=== PATIENT | female | born 1955 | race Caucasian/White ===

== ENCOUNTER → 2019-06-09 | Outpatient (CLI) | payer BC ==
--- NOTE | 2019-06-16 12:36 | RAD ---
History: Routine screening. Technique: Bilateral digital mammographic routine views were obtained with 2-D and 3-D technique including use of CAD - computer aided detection. Comparison: 08/11/2009, 05/14/2005. Findings: Breast Tissue Density C : The breast tissue is heterogeneously dense. Scattered fibroglandular elements may obscure underlying pathology. Waxing and waning pattern of nodularity in both breasts, compatible with benign fibrocystic change. There are no suspicious masses, microcalcifications or areas of architectural distortion. Impression: Benign findings bilaterally. No evidence of malignancy. BI-RADS Category 2: Benign. Normal interval followup. Your mammogram demonstrates that you have dense breast tissue, which could hide abnormalities, and if you have other risk factors for breast cancer that have been identified, you might benefit from supplemental screening tests that may be suggested by your ordering physician. Dense breast tissue, in and of itself, is a relatively common condition. This information is not provided to cause undue concern, but rather to raise your awareness and to promote discussion with your physician regarding the presence of other risk factors, in addition to dense breast tissue. A report of your mammography results will be sent to you and your physician. You should contact your physician if you have any questions or concerns regarding this report. A mammogram does not have 100% sensitivity and therefore a negative imaging study should not delay further work up of a suspicious abnormality. The patient will receive a letter with the results in the mail. Patient information is entered into the reminder system with a target due date for the next screening mammogram. The patient will receive a reminder. "Our facility is accredited by the [employer] Mammography Program." BI-RADS 2 -- benign findings
== END | disposition home or self-care (01) ==
LOC: MAMMO 14:22
PROVIDERS: ATTEND Internal Medicine
DX: Z12.31 Encounter for screening mammogram for malignant neoplasm of breast (principal); N64.89 Other specified disorders of breast
CPT/HCPCS: 77063; 77067

== ENCOUNTER 2020-05-11 09:59 | Inpatient (IN) | payer BC ==
[~2020-05-11] VITALS: Ht 170.2 cm; Wt 66.3 kg
[2020-05-11] MEDS ORDERED: IV NORMAL SALINE 1,000ML 1,000 ML IV ONE (10:15)
[2020-05-11] MEDS ORDERED: ONDANSETRON PF 4 MG/2 ML VIAL. IV ONE (10:15)
--- NOTE | 2020-05-11 10:41 | PHYS DOC ---
Past History Past Medical History: No Pertinent History Past Surgical History: No Surgical History Alcohol Use: None General Adult EDM: Chief Complaint: DIZZY/LIGHT HEADED HPI: HPI: 64 yo F presenting with dizziness for 24 hours. she describes that the room is spinning. when she moves her dizziness is worse. It is improved with sitting still. She fell yesterday and hit her head but did not lose consciousness. when she fell she injured her left thumb. She denies any other injuries from the fall. She denies vomiting. She denies abdominal pain. She denies fevers or chills. duration constant. nonradiating. ROS: neg for cp, soa, headache, focal weakness, speech changes. Pos for dizziness and head injury. All other ros is neg. ed course: 64 yo F presenting with dizziness and recent head injury. LKW 1200 noon on 05/10/2020. On arrival IV initiated. Head CT ordered along with blood work. Head and neck CT unremarkable. Patient is outside of the window for TPA. Finger x-ray shows acute comminuted distal phalanx fracture with intra- articular extension. Patient was placed in a splint and will be referred to orthopedic surgery for evaluation within the next 3-5 days. Blood work shows a mild elevation in bilirubin AST and ALT. Troponin within normal limits. On reexamination after fluids and meclizine the patient continues to feel vertigo. We will admit the patient for further investigation. Patient will need repeat liver function tests tomorrow. I will add on a CT angiogram of the head and neck. CT angiogram of the head and neck shows no large vessel occlusion. I spoke to Dr. Wilson who accepts patient for admission. Patient was then admitted for further evaluation treatment and care. Urine analysis pending at this time. Dr. Wilson will follow up on urine analysis. Current Medications: Current Meds: Current Medications Medications (Trade) Dose Ordered Sig/Ja Start Time Stop Time Status Last Admin Dose Admin Ondansetron HCl (Zofran) 4 mg 1X ONCE 05/11/20 10:15 05/11/20 10:18 DC 05/11/20 10:27 4 MG Sodium Chloride 1,000 ml @ 1,000 mls/hr 1X ONCE 05/11/20 10:15 05/11/20 11:14 05/11/20 10:27 1,000 MLS/HR Allergies: Allergies: Allergies Coded Allergies Type Severity Reaction Last Updated Verified No Known Drug Allergies 05/06/20 No Physical Exam: PE: Constitutional: Well developed, well nourished, no acute distress, non-toxic appearance. [] HENT: Normocephalic, mild bruise under the right eye. Nontender sinuses., bilateral external ears normal, oropharynx moist, no oral exudates, nose normal. [] Eyes: PERRLA, EOMI, conjunctiva normal, no discharge. [] Neck: Normal range of motion, no tenderness, supple, no stridor. [] Cardiovascular:Heart rate regular rhythm, no murmur [] Lungs & Thorax: Bilateral breath sounds clear to auscultation [] Abdomen: Bowel sounds normal, soft, no tenderness, no masses, no pulsatile masses. [] Skin: Warm, dry, no erythema, no rash. [] Back: No tenderness, no CVA tenderness. [] Extremities: No tenderness, no cyanosis, no clubbing, ROM intact, no edema. [] Neurologic: Mental status: Awake oriented and alert x3 Cranial nerves: Extraocular movements intact, eyebrows chris bilaterally, smile symmetric, uvula elevation nl, shoulder shrug intact bilaterally, tongue protrusion normal Clear speech. Normal [id number]-vl-haio. Lateral nystagmus with both left and right lateral gaze. No horizontal nystagmus. Sensation: equal and normal in all extremities Strength: 5/5 in upper and lower extremities bilaterally Psychologic: Affect normal, judgement normal, mood normal. [] EKG: EKG: [] EKG shows sinus rhythm with a regular rate. QTC is mildly prolonged. ST segments show mild lateral less than [address] elevation. Does not meet STEMI criteria. Radiology/Procedures: Radiology/Procedures: [] Heart Score: Risk Factors: Risk Factors: DM, Current or recent (<one month) smoker, HTN, HLP, family history of CAD, obesity. Risk Scores: Score 0 - 3: 2.5% MACE over next 6 weeks - Discharge Home Score 4 - 6: 20.3% MACE over next 6 weeks - Admit for Clinical Observation Score 7 - 10: 72.7% MACE over next 6 weeks - Early Invasive Strategies Course & Med Decision Making: Course & Med Decision Making Pertinent Labs and Imaging studies reviewed. (See chart for details) [] Dragon Disclaimer: Dragon Disclaimer: This electronic medical record was generated, in whole or in part, using a voice recognition dictation system. Departure Departure: Impression: Primary Impression: Vertigo Disposition: ADMITTED INPT THIS HOSP Admitting Physician: Kelly Wilson Condition: STABLE Referrals: PCP,UNKNOWN (PCP) MEME HERRERA MD May 11, 2020 10:41
[2020-05-11 10:43] LABS: CALCIUM 8.6 mg/dL (8.5-10.1); CREATININE 0.8 mg/dL (0.6-1.0); GFR 72.2; POTASSIUM 3.6 mmol/L (3.5-5.1)
[2020-05-11 10:46] LABS: BASO % 0 % (0-3); EOS % 0 % (0-3); HEMATOCRIT 40.1 % (36.0-47.0); HEMOGLOBIN 13.5 g/dL (12.0-15.5); LYMPH # 1.2 x10^3/uL (1.0-4.8); LYMPH % 12 % (24-48); MEAN CORPUSCULAR HEMOGLOBIN 31 pg (25-35); MEAN CORPUSCULAR HGB CONC 34 g/dL (31-37); MEAN CORPUSCULAR VOLUME 92 fL (79-100); MONO # 1.6 x10^3/uL (0.0-1.1); MONO % 16 % (0-9); NEUT # 7.3 x10^3uL (1.8-7.7); NEUT % 72 % (31-73); PLATELET COUNT 273 x10^3/uL (140-400); RED BLOOD COUNT 4.35 x10^6/uL (3.50-5.40); RED CELL DISTRIBUTION WIDTH 12.9 % (11.5-14.5); WHITE BLOOD COUNT 10.2 x10^3/uL (4.0-11.0)
[2020-05-11 10:49] LABS: ALBUMIN 3.1 g/dL (3.4-5.0); ALBUMIN/GLOBULIN RATIO 0.8 (1.0-1.7); TOTAL BILIRUBIN 1.6 mg/dL (0.2-1.0)
--- NOTE | 2020-05-11 11:20 | RAD ---
XR FINGER(S)_LEFT 2+VIEWS_RT DATE: 05/11/2020 11:10 AM INDICATION: left thumb injury COMPARISON: None. FINDINGS/ IMPRESSION: Acute comminuted fracture of the base of the first distal phalanx with intra-articular extension. Mil d displacement of the dorsal plate, with other nondisplaced components. Electronically signed by: Ed Grimaldo MD (05/11/2020 11:18 AM) [id number]
[2020-05-11] MEDS ORDERED: MECLIZINE 12.5 MG TABLET. PO ONE (12:30)
--- NOTE | 2020-05-11 12:53 | RAD ---
Examination: CT head and cervical spine without contrast CT HEAD INDICATION: Reason: head trauma / Spl. Instructions: / History: COMPARISON: None Available. Exposure: One or more of the following individualized dose reduction techniques were utilized for thi s examination: 1. Automated exposure control 2. Adjustment of the mA and/or kV according to patient size 3. Use of iterative reconstruction technique TECHNIQUE: 5 mm contiguous axial images were obtained from the skull base to the vertex in both bone and soft tissue algorithm. FINDINGS: No abnormal attenuation within the brain parenchyma. No evidence of acute intracranial hemorrhage. No extra-axial fluid collections. No mass effect or midline shift. Ventricular size is appropriate. Basal cisterns are patent. No fractures identified.Nova-white differentiation is preserved.Globes and orbits are within normal l imits. Paranasal sinuses and mastoid air cells are clear. IMPRESSION: No acute intracranial findings. CT CERVICAL SPINE INDICATION: Reason: head trauma / Spl. Instructions: / History: COMPARISON: None Available. Technique: 2.5 mm contiguous axial images were obtained from the skull base through the cervicothorac ic junction in both bone and soft tissue algorithm. Additional sagittal and coronal reconstructions were also performed. FINDINGS: Vertebral body height and alignment are maintained. Cervical lordosis is preserved. The l ateral masses of C1 are aligned upon C2. No fractures identified. The bony canal is patent throughout. Moderate intervertebral disc height loss identified in the cervical spine particularly at C4-C5, C5-C 6, C6-C7 vertebral levels. The bilateral facets are well aligned. The paraspinous soft tissues are unremarkable. Visualized intracranial contents are unremarkable. L phyllis apices are clear. IMPRESSION: 1. No acute fracture of the cervical spine 2. Moderate degenerative changes cervical spine. Electronically signed by: Guy Levine MD (05/11/2020 12:51 PM) [id number]
[2020-05-11] MEDS ORDERED: METOCLOPRAMIDE HCL 10 MG/2 ML VIAL. IVP ONE (13:00)
[2020-05-11] MEDS ORDERED: IOHEXOL 350 MG/ML 100 ML VIAL. IV ONE (15:15)
--- NOTE | 2020-05-11 15:19 | EKG ---
[address] [address] Test Date: 2020-05-11 Test Time: 15:05:02 Pat Name: BENJI FRANCISCO Department: Room: Gender: F Theology Professor: MARLENE : 1955 Requested By: MEME HERRERA Order Number: [id number] Reading MD: Measurements Intervals Valier Rate: 65 P: 36 HI: 144 QRS: -22 QRSD: 84 T: 47 QT: 454 QTc: 473 Interpretive Statements SINUS RHYTHM LEFTWARD AXIS PROLONGED QT NO SPECIFIC ECG ABNORMALITIES RI6.02 No previous ECG available for comparison
[2020-05-11 15:35] VITALS: BP 151/76
--- NOTE | 2020-05-11 16:17 | RAD ---
CTA head and CTA neck with contrast History: Vertigo Technique: Axial helical images were obtained of the head and neck after the intravenous administrati on of 75 mL of Isovue-370 IV contrast. Multiplanar reconstruction was performed on an independent wo rk station including MIP imaging and 3D angiographic imaging. Comparison: none CTA head with and without contrast. Findings: Brain: The reis and white matter appears symmetrical. There is no mass effect, extra-axial fluid co llections or hydrocephalus. There is no gross bleed. 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 No acute findings. End impression PQRS Compliance Statement - Stenosis calculations for CT, MR and conventional angiography are based u soy measurement of the distal ICA diameter in accordance with the NASCET methodology. Stenosis calcu lations for carotid ultrasound studies are derived from validated velocity criteria which are known t o correlate with the NASCET methodology. PQRS Compliance Statement: One or more of the following individualized dose reduction techniques were utilized for this examinat ion: 1. Automated exposure control 2. Adjustment of the mA and/or kV according to patient size 3. Use of iterative reconstruction technique Electronically signed by: Isiah Stevens III, MD (05/11/2020 4:15 PM) [facility]
[2020-05-11] MEDS ORDERED: DEXAMETHASONE (16:36)
[2020-05-11] MEDS ORDERED: [UNRECOGNIZED DRUG - OTHER] (16:36)
[2020-05-11] MEDS: IV NORMAL SALINE 1,000ML 1,000 ML IV SCH (18:15)
[2020-05-11] MEDS ORDERED: ONDANSETRON PF 4 MG/2 ML VIAL. IVP PRN (18:15)
--- NOTE | 2020-05-11 18:32 | HP ---
ADMIT DATE: 05/11/2020 HISTORY OF PRESENT ILLNESS: The patient is a 64-year-old female patient who was discharged on Friday05/07/2020 after a brief admission for pneumonia for which she was discharged on dexamethasone. The patient did very well on Friday and Friday and yesterday she started having episodes of things spinning around, associated with nausea, aggravated by any movement. The symptoms were resolved when she sits still. She has actually fallen and hit her head. He did have some nausea yesterday and she has vomited once this morning, but denied any blurring of vision. Denied any headache, denied any tingling or numbness or lateralized weakness. She was extensively investigated in the Emergency Room and she apparently when she fell, she broke the base of the first distal phalanx with intraarticular extension with mild displacement of the dorsal plate with other nondisplaced component that was splinted by the ER physician. She did have CT head with cervical spine without contrast, which showed no acute intracranial finding and there is no acute fracture of the cervical spine with moderate degenerative changes of cervical spine. She underwent also CT angio of the head and neck, which basically showed both right and left common carotid arteries are normal. The right and left internal carotid artery are normal. The vertebrobasilar system, the left vertebral artery is small which could be a congenital variant. No acute finding. The patient was admitted for further evaluation and treatment and to consult Dr. Hess. PAST MEDICAL HISTORY: Unremarkable. PAST SURGICAL HISTORY: Significant for bunionectomy. ALLERGIES: She has no known drug allergies. MEDICATIONS: She is currently only occasionally on [id number] medication for Tylenol, and ibuprofen. FAMILY HISTORY: She has one brother, older and one sister, younger, both healthy. Her father in his 80s with prostate cancer. Mother in her 70s because of breast cancer. SOCIAL HISTORY: She lives with her . She has a son and a daughter. She never smoked, does not drink alcohol or use any recreational drugs. 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 REVIEW OF SYSTEMS: The patient denied any blurring of vision, cataract, glaucoma. She stated that she has the beginning of senile macular degeneration. Denied any earache, tinnitus or sensorineural deafness. Denied any nosebleeds, stuffy nose or postnasal drip. Denied any sore throat, sore tongue, toothache, hoarseness of voice or difficulty swallowing. Did complain of nausea and vomiting, but denied any diarrhea. Denied any hematemesis, melena, or hematochezia. Denied any dysuria, frequency or hematuria. Denied any chest pain, shortness of breath, orthopnea or paroxysmal nocturnal dyspnea, continued to complain of things spinning around. PHYSICAL EXAMINATION: GENERAL: On arrival to the Emergency Room, she looked well and was clearly in no apparent respiratory distress. No pallor, jaundice, cyanosis or thyromegaly. No jugular venous distention. No limb edema. VITAL SIGNS: Her heart rate was 60, blood pressure was 136/73, temperature was 98, respiratory rate was 16, and oxygen saturation was 90% on room air. HEAD, EYES, EARS, NOSE AND THROAT: Normocephalic, atraumatic. NECK: Supple. HEART: Showed normal first and second heart sounds. No gallop, rub or murmur. CHEST: Clear to auscultation. No crepitation or rhonchi. ABDOMEN: Distended, soft, nontender. No guarding or rigidity. No organomegaly. All hernial orifice intact. Bowel sounds normal. NEUROLOGIC: She is awake, alert, responding appropriately. All her cranial nerves intact. EXTREMITIES: She moves extremities without difficulty. Unfortunately, her symptoms worsen whenever she attempts to move and she keeps her eyes closed. LABORATORY DATA: Showed a white cell count of 10,200, hemoglobin 13.5, hematocrit 40, MCV 92, and platelet count 273,000. Her chemistry showed a serum sodium 140, potassium 3.6, chloride 109, bicarbonate 23, anion gap of 13, BUN 27, creatinine was 0.8. Estimated GFR was 72 mL per minute. Her glucose 150, calcium was 8.6. Total bilirubin, AST, and ALT were elevated. Alkaline phosphatase was normal. Her total protein was 7, albumin was 3.1. Her lipase was normal at 338. ASSESSMENT AND PLAN: The patient stated that she was tested about 2 weeks ago for COVID at [facility] and was negative. By the time she arrived to the hospital, she was hypoxic with oxygen saturation of only 85%, for which we started her on 3 liters of oxygen. Given her hypoxia and elevated liver enzymes, I am little bit concerned about COVID. We will contact the [facility] to find out her coronavirus testing. I would also arrange for her to have a CT scan of the chest with PE protocol to eliminate the possibility of a PE as a cause of her hypoxia. MAKAYLA OCHOA MD DR: RAMONA/andres JOB#: [id number] / [id number]
[2020-05-11 18:59] LABS: BILIRUBIN,URINE NEG (NEG); CLARITY,URINE HAZY; COLOR,URINE YELLOW; GLUCOSE,URINE NEG (NEG); NITRITE,URINE NEG (NEG); UROBILINOGEN,URINE 0.2 mg/dL (0.2 mg/dL)
[2020-05-11 19:00] LABS: BACTERIA,URINE 0 /HPF (0-FEW); RBC,URINE 0 /HPF (0-2); SQUAMOUS EPITHELIAL CELL,UR OCC /LPF
[2020-05-11 19:21] VITALS: BP 134/66
[2020-05-11 22:14] VITALS: BP 128/64
--- NOTE | 2020-05-11 22:51 | CONS ---
DATE OF CONSULTATION: 05/11/2020 NEUROLOGY CONSULTATION REASON FOR CONSULTATION: Dizziness. HISTORY OF PRESENT ILLNESS: This is a 64-year-old right-handed female who was admitted through Emergency Room on account of 2-day history of dizziness described as spinning, aggravated by changing body positions quickly or turning quickly the head to any directions. The symptoms started approximately 2 days ago and had intermittent nausea, but she vomited once this morning. She denies headaches, visual disturbances, chest pain, shortness of breath or palpitation, dysarthria or dysphagia, weakness or paresthesia. The patient reported multiple falls and closed head injury without loss of consciousness. Initial nonenhanced CT scan revealed no evidence of acute intracranial process, but CT angio of the head revealed no significant abnormality, except for possible narrowing of the left vertebral artery and possible congenital variant as secondary of the fall, the patient sustained a fracture of the first distal phalanx. CT of the cervical spine revealed moderate degenerative disk changes. CT angio of the neck revealed no evidence of significant carotid artery stenosis. According to the patient, she would not have spinning of the head if she stays still. PAST MEDICAL HISTORY: Unremarkable. PAST SURGICAL HISTORY: Positive for bunionectomy. FAMILY HISTORY: Father at age of 80s from prostate cancer and mother at the age of 77 from breast cancer. CURRENT HOME MEDICATIONS: Tylenol and ibuprofen. ALLERGIES: No known drug allergies. REVIEW OF SYSTEMS: A 12-point review of system was performed as mentioned above in history of present illness, otherwise unremarkable. PHYSICAL EXAMINATION: GENERAL: Well-developed, well-nourished female, not in acute distress. He weighs 64.5 kilos. VITAL SIGNS: Blood pressure 134/66, respiratory rate 20, pulse is 56, temperature is 98.8, and oxygen saturation is 93% on 3 liters by nasal cannula. HEENT: Normocephalic, atraumatic, otherwise unremarkable. NECK: Supple. Negative for carotid bruit, lymphadenopathy or thyromegaly. LUNGS: Clear to A and P. CARDIOVASCULAR: Regular rate and rhythm. Normal S1, S2. There is no S3, S4 or murmur. ABDOMEN: Soft. Bowel sounds positive. EXTREMITIES: Negative for cyanosis, clubbing, or pedal edema. NEUROLOGICAL EXAM: Mental status: The patient is alert and oriented x 3. Speech is fluent. There is no language dysfunction. Memory, judgment, and abstracting thinking are normal. The patient denies hallucination or delusion. Cranial nerves: Visual conway are full. The pupils are reactive to light and accommodation. The extraocular movements are intact. There is no nystagmus. There is no facial motor or sensory deficit. Hearing is intact bilaterally. The palate is elevated symmetrically. Sternocleidomastoid muscles are powerful bilaterally. The patient shrugs her shoulders symmetrically, protrudes her tongue in the midline without fasciculation or atrophy. Motor: No focal muscle bulk was seen. The tone is normal. The strength is 5/5 throughout. Sensory: Revealed normal pinprick, light touch, vibratory and position senses. Deep tendon reflexes were symmetric and hypoactive without pathologic responses. Gait: Not tested. LABORATORY DATA: CBC revealed white blood cells of 10,200, hemoglobin 13.5, hematocrit 40.1, platelet count 273,000. Chemistry revealed sodium of 145, potassium 3.6, chloride 109, CO2 of 23, BUN 27, creatinine 0.8, glucose is 150. Bilirubin is elevated at 1.6. Liver enzymes are elevated. AST is 112 and ALT is 200. Normal troponin level. Urinalysis revealed no evidence of urinary tract infections. DICTATION ENDS HERE M Rock ROMANO MD DR: LUZ/andres JOB#: [id number] / [id number]
[2020-05-12 05:45] VITALS: BP 118/63
[2020-05-12 06:11] LABS: HEMOGLOBIN 11.3 g/dL (12.0-15.5); RED BLOOD COUNT 3.65 x10^6/uL (3.50-5.40); WHITE BLOOD COUNT 7.1 x10^3/uL (4.0-11.0)
[2020-05-12] MEDS: MECLIZINE 12.5 MG TABLET. PO PRN ×3 (06:14→23:45)
[2020-05-12 06:48] LABS: ALBUMIN 2.4 g/dL (3.4-5.0); ALBUMIN/GLOBULIN RATIO 0.7 (1.0-1.7); CALCIUM 7.8 mg/dL (8.5-10.1); CREATININE 0.6 mg/dL (0.6-1.0); GFR 100.6; POTASSIUM 3.5 mmol/L (3.5-5.1); TOTAL PROTEIN 5.8 g/dL (6.4-8.2)
[2020-05-12] MEDS: IV NORMAL SALINE 1,000ML 1,000 ML IV SCH (07:35)
--- NOTE | 2020-05-12 10:12 | CONS ---
DATE OF CONSULTATION: ADDENDUM DIAGNOSTIC DATA: Head CT scan and CT angio of the neck and head as described above. X-ray of the left hand revealed acute comminuted fracture of the base of the first distal phalanx with intraarticular extension and mild displacement of the dorsal plate. Head CT scan and cervical CT scan spine as described above. IMPRESSION: 1. Acute vertigo described as spinning versus benign positional vertigo, rule out vestibulopathy. 2. Await the results for COVID-19 done 2 weeks ago at [facility]. 3. Hypoxia with oxygen saturation of 85% in the Emergency Room, required 3 liters of oxygen through nasal cannula. 4. Elevated liver enzymes of unknown etiology. RECOMMENDATIONS: 1. Continue with current management for acute vestibular neuropathy with meclizine, bedrest, and increase activities gradually and hydration. 2. We will continue with current management initiated by Dr. Wilson recording hypoxia and elevated liver enzymes. The patient is neurologically stable. Ending dictation for the previous Neuro consult done yesterday, but it got cut off after the lab results reported. Gillespie, please give me a call if you have any question about this. This is the completion of this neuro consult. I will try to reach you today. M Rock ROMANO MD DR: LUZ/andres JOB#: [id number] / [id number]
--- NOTE | 2020-05-12 10:18 | CONS ---
DATE OF CONSULTATION: 05/11/2020 NEUROLOGY CONSULTATION REASON FOR CONSULTATION: Dizziness. HISTORY OF PRESENT ILLNESS: This is a 64-year-old right-handed female who was admitted through Emergency Room on account of 2-day history of dizziness described as spinning, aggravated by changing body positions quickly or turning quickly the head to any directions. The symptoms started approximately 2 days ago and had intermittent nausea, but she vomited once this morning. She denies headaches, visual disturbances, chest pain, shortness of breath or palpitation, dysarthria or dysphagia, weakness or paresthesia. The patient reported multiple falls and closed head injury without loss of consciousness. Initial nonenhanced CT scan revealed no evidence of acute intracranial process, but CT angio of the head revealed no significant abnormality, except for possible narrowing of the left vertebral artery and possible congenital variant as secondary of the fall, the patient sustained a fracture of the first distal phalanx. CT of the cervical spine revealed moderate degenerative disk changes. CT angio of the neck revealed no evidence of significant carotid artery stenosis. According to the patient, she would not have spinning of the head if she stays still. PAST MEDICAL HISTORY: Unremarkable. PAST SURGICAL HISTORY: Positive for bunionectomy. FAMILY HISTORY: Father at age of 80s from prostate cancer and mother at the age of 77 from breast cancer. CURRENT HOME MEDICATIONS: Tylenol and ibuprofen. ALLERGIES: No known drug allergies. REVIEW OF SYSTEMS: A 12-point review of system was performed as mentioned above in history of present illness, otherwise unremarkable. PHYSICAL EXAMINATION: GENERAL: Well-developed, well-nourished female, not in acute distress. He weighs 64.5 kilos. VITAL SIGNS: Blood pressure 134/66, respiratory rate 20, pulse is 56, temperature is 98.8, and oxygen saturation is 93% on 3 liters by nasal cannula. HEENT: Normocephalic, atraumatic, otherwise unremarkable. NECK: Supple. Negative for carotid bruit, lymphadenopathy or thyromegaly. LUNGS: Clear to A and P. CARDIOVASCULAR: Regular rate and rhythm. Normal S1, S2. There is no S3, S4 or murmur. ABDOMEN: Soft. Bowel sounds positive. EXTREMITIES: Negative for cyanosis, clubbing, or pedal edema. NEUROLOGICAL EXAM: Mental status: The patient is alert and oriented x 3. Speech is fluent. There is no language dysfunction. Memory, judgment, and abstracting thinking are normal. The patient denies hallucination or delusion. Cranial nerves: Visual conway are full. The pupils are reactive to light and accommodation. The extraocular movements are intact. There is no nystagmus. There is no facial motor or sensory deficit. Hearing is intact bilaterally. The palate is elevated symmetrically. Sternocleidomastoid muscles are powerful bilaterally. The patient shrugs her shoulders symmetrically, protrudes her tongue in the midline without fasciculation or atrophy. Motor: No focal muscle bulk was seen. The tone is normal. The strength is 5/5 throughout. Sensory: Revealed normal pinprick, light touch, vibratory and position senses. Deep tendon reflexes were symmetric and hypoactive without pathologic responses. Gait: Not tested. LABORATORY DATA: CBC revealed white blood cells of 10,200, hemoglobin 13.5, hematocrit 40.1, platelet count 273,000. Chemistry revealed sodium of 145, potassium 3.6, chloride 109, CO2 of 23, BUN 27, creatinine 0.8, glucose is 150. Bilirubin is elevated at 1.6. Liver enzymes are elevated. AST is 112 and ALT is 200. Normal troponin level. Urinalysis revealed no evidence of urinary tract infections. DIAGNOSTIC DATA: Head CT scan and CT angio of the neck and head as described above. X-ray of the left hand revealed acute comminuted fracture of the base of the first distal phalanx with intraarticular extension and mild displacement of the dorsal plate. Head CT scan and cervical CT scan spine as described above. IMPRESSION: 1. Acute vertigo described as spinning versus benign positional vertigo, rule out vestibulopathy. 2. Await the results for COVID-19 done 2 weeks ago at [facility]. 3. Hypoxia with oxygen saturation of 85% in the Emergency Room, required 3 liters of oxygen through nasal cannula. 4. Elevated liver enzymes of unknown etiology. RECOMMENDATIONS: 1. Continue with current management for acute vestibular neuropathy with meclizine, bedrest, and increase activities gradually and hydration. 2. We will continue with current management initiated by Dr. Wilson recording hypoxia and elevated liver enzymes. The patient is neurologically stable. Ending dictation for the previous Neuro consult done yesterday, but it got cut off after the lab results reported. [place], please give me a call if you have any question about this. This is the completion of this neuro consult. I will try to reach you today. M Rock ROMANO MD DR: LUZ/andres JOB#: [id number] / [id number]
[2020-05-12 10:25] VITALS: BP 114/64
[2020-05-12 14:35] VITALS: BP 118/65
[2020-05-12] MEDS ORDERED: CONTRAST GIVEN. MC PRN (16:00)
[2020-05-12] MEDS ORDERED: IOHEXOL 350 MG/ML 100 ML VIAL. IV ONE (16:00)
--- NOTE | 2020-05-12 17:20 | RAD ---
Exam: CT of chest with contrast INDICATION: Acute hypoxic respiratory failure TECHNIQUE: Sequential axial images through the chest obtained following the administration 100 mL of Omni 350 IV contrast. Sagittal and coronal reformatted images were reconstructed from the axial data and reviewed. 3-D reformatted images were reconstructed from the axial data and reviewed. Comparisons: 05/06/2020 FINDINGS: Visualized portions of the thyroid are unremarkable. No enlarged mediastinal lymph nodes are identifi ed. Heart size is normal. No pericardial effusion. Thoracic aorta has a normal course and caliber. Pulmon kacy artery is not enlarged. No pulmonary embolus identified within the main, lobar or segmental pulmo nary arteries. Airways are patent. Patchy areas of consolidation noted in periphery of the lungs bilaterally greater at the lung bases. No pneumothorax. No suspicious lung nodules. No pleural effusion or thickening. Visualized upper abdomen is unremarkable. No suspicious osseous lesions or acute fractures. IMPRESSION: 1. No pulmonary embolus identified within the main, lobar or segmental pulmonary arteries. 2. Patchy areas of consolidation noted in the periphery of the lungs bilaterally favored to be infec tious or inflammatory in etiology. Correlate for atypical/viral causes such as Covid. Exposure: One or more of the following in the visualized dose reduction techniques were utilized for this examination: 1. Automated exposure control 2. Adjustment of the MA and/or KV according to patient size 3. Use of iterative of reconstructive technique Electronically signed by: Tarah Mejias MD (05/12/2020 5:18 PM) [facility]
[2020-05-12 19:00] VITALS: BP 109/62
--- NOTE | 2020-05-12 19:08 | PN ---
DATE: 05/12/2020 SUBJECTIVE: The patient is resting, slightly propped up in bed, in no apparent respiratory distress. She is definitely more awake, alert, able to move her head without difficulty. She is opening her eyes. She has eaten lunch and managed to make it to the bedside commode. She actually declined to take even her meclizine. PHYSICAL EXAMINATION: GENERAL: When I saw her this afternoon, she looked well, slightly pale, but no jaundice, cyanosis or thyromegaly. No jugular venous distention. No limb edema. VITAL SIGNS: Her heart rate was 77, blood pressure was 114/64, temperature was 98.4, respiratory rate was 14 and oxygen saturation was 90% on 2 liters of oxygen. HEAD, EYES, EARS, NOSE AND THROAT: Showed normocephalic, atraumatic. NECK: Supple. HEART: Showed normal first and second heart sounds. No gallop or murmur. CHEST: Clear to auscultation. No crepitation or rhonchi. ABDOMEN: Distended, soft, nontender. NEUROLOGIC: She is grossly awake. Her intake and output were incompletely recorded. LABORATORY DATA: Her lab work this morning showed a white cell count 7100; hemoglobin 11; hematocrit 34; MCV 93; and platelet count of 198,000. Her chemistry showed a serum sodium 144, potassium 3.5, chloride 111, bicarbonate 26, anion gap of 7, BUN 21, creatinine 0.6, estimated GFR was 100 mL per minute. Her glucose 100, calcium was 7.8. Total bilirubin and alkaline phosphatase normal. AST, ALT are elevated, but trending down. Her total protein 5.8, albumin 2.4. Urinalysis essentially unremarkable. ASSESSMENT: 1. Acute vestibular neuronitis, improving. 2. The patient tested negative at the [facility] about 2 weeks ago; however, she is hypoxic. Her oxygen saturation was 95% on room air. She has mildly deranged liver enzyme, raising suspicion that she might have COVID-19 pneumonia. The other possibilities obviously she had a pulmonary embolism. She is now on droplet precaution and she is on meclizine and ondansetron. She was also on IV fluid, but she is now eating. PLAN: My plan is to discontinue her IV fluid, continue with physical therapy. I will repeat all her lab works tomorrow including a D-dimer and if she continued to be hypoxic and her COVID-19 was negative, we will arrange for her to have a CT angio of the chest to rule out the pulmonary embolus. MAKAYLA OCHOA MD DR: RAMONA/andres JOB#: [id number] / [id number]
[2020-05-12 23:00] VITALS: BP 136/71
[2020-05-13 06:31] VITALS: BP 117/62
[2020-05-13 07:06] LABS: HEMATOCRIT 33.9 % (36.0-47.0); HEMOGLOBIN 11.3 g/dL (12.0-15.5); RED BLOOD COUNT 3.61 x10^6/uL (3.50-5.40); RED CELL DISTRIBUTION WIDTH 12.7 % (11.5-14.5); WHITE BLOOD COUNT 6.4 x10^3/uL (4.0-11.0)
[2020-05-13 07:18] LABS: ALBUMIN 2.3 g/dL (3.4-5.0); ALBUMIN/GLOBULIN RATIO 0.6 (1.0-1.7); CALCIUM 7.9 mg/dL (8.5-10.1); CREATININE 0.7 mg/dL (0.6-1.0); GFR 84.2; POTASSIUM 3.9 mmol/L (3.5-5.1); TOTAL BILIRUBIN 0.7 mg/dL (0.2-1.0); TOTAL PROTEIN 5.9 g/dL (6.4-8.2)
[2020-05-13 10:51] VITALS: BP 114/57
[2020-05-13] MEDS ORDERED: DEXAMETHASONE SOD PHOS 10 MG/ML VIAL. IV ONE (11:30)
[2020-05-13] MEDS ORDERED: ENOXAPARIN 40 MG/0.4 ML SYRINGE. SQ SCH ×2 (12:00→22:00)
[2020-05-13 12:07] LABS: BGAS PH 7.43 (7.35-7.45)
[2020-05-13] MEDS ORDERED: AZITHROMYCIN 500 MG in IV NORMAL SALINE 250ML 250 ML IV SCH (12:30)
--- NOTE | 2020-05-13 13:53 | PN ---
DATE: SUBJECTIVE: The patient denies any new neurological complaints; however, she continues to have dizziness upon changing her body positions or turning head quickly. According to the nursing staff, she tried to walk yesterday, but as soon as she stands up, she felt dizzy with vertigo. She did not have any falls. She denies headaches, visual disturbances. She denies chest pain or shortness of breath; however, she was on 3 liters of oxygen per nasal cannula. OBJECTIVE: GENERAL: Well-developed, well-nourished female, not in acute distress. VITAL SIGNS: Blood pressure 114/57, respiratory rate 16, pulse is 73 and oxygen saturation is 92% on 4 liters by nasal cannula, temperature is 97.5. HEENT: Normocephalic, atraumatic, otherwise unremarkable. NECK: Supple. Negative for carotid bruit, lymphadenopathy or thyromegaly. LUNGS: Diminished breath sounds. No wheezing or crackles. CARDIOVASCULAR: Regular rate and rhythm, normal S1, S2. There is no S3, S4 or murmur. ABDOMEN: Soft. Bowel sounds positive. EXTREMITIES: Negative for cyanosis, clubbing or edema. NEUROLOGICAL EXAM: Mental Status: The patient is alert and oriented x 3. Speech is fluent. There is no language dysfunction, otherwise unremarkable. Cranial nerves are intact. No focal motor are intact. No nystagmus. Motor examination: No focal muscle bulk was seen. The tone is normal. The strength is 5/5 throughout. Sensory examination revealed normal pinprick and light touch senses throughout. Deep tendon reflexes were symmetric and hypoactive without pathology responses. Gait not tested. DIAGNOSTIC DATA: Chest CT scan performed yesterday afternoon revealed negative for pulmonary embolism; however, patchy areas of consolidation noted in the lungs bilaterally consistent with inflammatory process and possible secondary to coronavirus infections. LABORATORY DATA: Coagulation, D-dimer is elevated at more than 19. CBC revealed white blood cells of 6.4 thousand, hemoglobin 11.3, hematocrit 33.9, platelet count 189. Chemistry revealed sodium of 145, potassium 3.9, chloride 118, CO2 of 27, BUN 24, creatinine 0.7, glucose 116. Liver enzymes are still elevated. AST is 38 and ALT is 168. IMPRESSION: 1. Acute vertigo and possible benign positional vertigo versus vestibular neuropathy. 2. Chest CT angio consistent with inflammation and pneumonia and possible coronavirus infections. 3. Elevated liver enzymes of unknown etiology, probably secondary to coronavirus infections. RECOMMENDATIONS: 1. The patient will continue with current management initiated by Dr. Wilson for pneumonia. The patient has been on dexamethasone and broad-spectrum antibiotics. 2. Await COVID-19 results. Otherwise, we will continue with current management for vertigo including hydration and meclizine. The patient is neurologically stable at this time. M Rock ROMANO MD DR: LUZ/andres JOB#: [id number] / [id number]
[2020-05-13 14:37] VITALS: BP 139/75
--- NOTE | 2020-05-13 14:45 | PN ---
DATE: 05/12/2020 REFERRING PHYSICIAN: Dr. Wilson. SUBJECTIVE: The patient denies any new medical or neurological complaints. She continues to have mild dizziness upon changing her body positions or turning her head quickly, but she feels better regarding the dizziness, She did not ask for meclizine, but she did one last night. She denies headaches, visual disturbances or vomiting. She denies any abdominal pain or bowel movement changes. COVID-19 result has been pending, it was done here in the hospital. She denies chest pain, shortness of breath or palpitations. OBJECTIVE: GENERAL: Well-developed, well-nourished female, not in acute distress. VITAL SIGNS: Blood pressure 118/63, respiratory rate 18, pulse is 69 and regular, temperature 96.1, oxygen saturation 90% on 3 liters via nasal cannula. HEENT: Normocephalic, atraumatic, otherwise unremarkable. NECK: Supple. Negative for carotid bruit, lymphadenopathy or thyromegaly. LUNGS: Diminished breath sounds, but no crackles or wheezing. CARDIOVASCULAR: Regular rate and rhythm, normal S1, S2. ABDOMEN: Soft. Bowel sounds positive. EXTREMITIES: Negative for cyanosis, clubbing, or pedal edema. NEUROLOGICAL EXAM: Mental Status: The patient is alert and oriented x3. The speech is fluent. There is no language dysfunction, otherwise unremarkable. Cranial nerves are intact. No focal motor or sensory deficits. Deep tendon reflexes were symmetric and hypoactive without pathology responses. Gait not tested. LABORATORY DATA: CBC revealed white blood cells of 7.1 thousand, hemoglobin 11.3, hematocrit 34, platelet count 198,000. Chemistry revealed sodium of 144, potassium 3.5, chloride 111, CO2 of 26, BUN 21, creatinine 0.6, glucose is 100. Liver enzymes revealed elevated AST and ALT. IMPRESSION: 1. Acute vertigo, presented with spinning induced by changing her body or turning her head quickly. 2. Events of oxygen desaturation requiring oxygen supplements at 3 liters via nasal cannula. 3. Suspected COVID-19 infection. However, the results of the test are still pending. 4. Elevated liver enzymes of unknown etiology, may be related to coronavirus infections. RECOMMENDATIONS: 1. Continue with current medical management initiated by Dr. Wilson regarding possible lung infections. 2. Await for COVID-19 results. 3. Continue with current medications for vertigo including meclizine and ____ for now. M Rock ROMANO MD DR: LUZ/andres JOB#: [id number] / [id number]
--- NOTE | 2020-05-13 16:57 | RAD ---
EXAM: Bilateral lower extremity venous Doppler. HISTORY: Bilateral lower extremity pain/swelling. Hypoxia. COMPARISON: None. FINDINGS: Grayscale and Doppler analysis of the both lower extremity deep venous systems was performe d with graded compression and augmentation. The common femoral, greater saphenous, superficial femora l, popliteal and calf veins were assessed. There is nonocclusive thrombus within the right popliteal vein and one of the posterior tibial and pe roneal veins. There is nonocclusive thrombus within one of the posterior tibial and peroneal veins. IMPRESSION: 1. Nonocclusive deep venous thrombosis bilaterally as above. These findings were called to Federico by Dave Martinez on 05/13/2020 at 4:53 PM. FOR INTERNAL CODING PURPOSES RESULT CODE: (C) Electronically signed by: Ree Martinez MD (05/13/2020 4:54 PM) [facility]
[2020-05-13 19:00] VITALS: BP 121/59
--- NOTE | 2020-05-13 20:48 | PN ---
DATE: 05/13/2020 SUBJECTIVE: The patient is resting, slightly propped up, eating her lunch comfortably, in no apparent distress. She denied any complaint, in particular denied any chest pain or shortness of breath. Her oxygen requirement has dramatically increased this morning from 4 liters to like 8 and [address] scan of the chest with PE protocol showed no evidence of pulmonary emboli identified within the main lobar and segmental pulmonary arteries. She has patchy areas of consolidation noted in the periphery of the lungs bilaterally favored to be infectious, inflammatory etiology, correlate for atypical viral cause such as COVID. We did start her on BiPAP machine and start her on ceftriaxone 1 g IV daily, Zithromax 500 mg IV once a day together with dexamethasone 10 mg once together with Lovenox 40 mg subcutaneously once a day. I did order bilateral venous Doppler ultrasound of both lower extremities as her D-dimer was extremely high, more than 19 mg/dL. PHYSICAL EXAMINATION: GENERAL: When I examined her this afternoon, she looked well and was clearly in no apparent respiratory distress. No pallor. She is slightly pale, but no jaundice, cyanosis or thyromegaly. No jugular venous distention. No limb edema. VITAL SIGNS: Her heart rate was 72, blood pressure was ____ , temperature 97.5, respiratory rate was 16, and oxygen saturation was 97%. When I saw her, actually she was on 12 liters, maintaining her oxygen saturation at 92%. HEENT: Showed normocephalic, atraumatic. NECK: Supple. HEART: Showed normal first and second heart sounds. No gallop, rub or murmur. CHEST: Clear to auscultation, could not appreciate any crepitation or rhonchi. ABDOMEN: Distended, soft, nontender. NEUROLOGIC: She is definitely more awake, alert, responding appropriately. All cranial nerves intact. She was able to move her head without difficulty. She was able to walk all the way to the bathroom, did apparently feel dizzy at that time, but her dizziness has dramatically improved. Her intake and output are incompletely recorded. LABORATORY DATA: Her lab work this morning showed a white cell count of 6400, hemoglobin 11, hematocrit 33, MCV 94 and platelet count of 189,000. Her serum sodium was 145, potassium 3.9, chloride 110, bicarbonate 27, anion gap of 8, BUN 24, creatinine 0.7, estimated GFR was 84 mL per minute. Her glucose was 116, calcium was 7.9. Total bilirubin and alkaline phosphatase are normal. AST, ALT are elevated, but trending down. Her total protein was 5.9, albumin was 2.3. Her D-dimer has dramatically risen to more than 19 mg/dL. Her blood gases this morning showed a pH of 7.43, pCO2 of 38, pO2 of 95, bicarbonate 25, and oxygen saturation was 98% on FiO2 of 60%. Her urinalysis was essentially unremarkable. ASSESSMENT: In summary, this is a 64-year-old female patient who was admitted originally with what seemed to be acute vestibular neuronitis with a complaint of things spinning around that has ____ improving. She has developed acute hypoxic respiratory failure with increasing oxygen requirement. She has no evidence of pulmonary emboli on CT angio of the chest; however, she has bilateral lung infiltrate consistent with either atypical pneumonia and/or viral pneumonia. She has also elevated transaminitis that is improving. Her D-dimer was high at 19 mg/dL. PLAN: My plan is to continue with dexamethasone. Continue with ceftriaxone and Zithromax for presumed superimposed community-acquired pneumonia. She clinically behaves like she had coronavirus infection. If she desaturates, we will probably use a BiPAP machine at nighttime and high flow oxygen during daytime, we will use also Vapotherm if becomes available. MAKAYLA OCHOA MD DR: RAMONA/andres JOB#: [id number] / [id number]
[2020-05-13] MEDS: LACTOBACILLUS RHAMNOSUS GG 1 CAPSULE. PO SCH (22:02)
[2020-05-13] MEDS: ENOXAPARIN ** NOTE DOSE ** SYRINGE SQ SCH (22:02)
[2020-05-13 22:29] VITALS: BP 124/66
[2020-05-14 07:21] VITALS: BP 148/70
[2020-05-14] MEDS: ENOXAPARIN ** NOTE DOSE ** SYRINGE SQ SCH ×2 (08:52→21:59)
[2020-05-14] MEDS: LACTOBACILLUS RHAMNOSUS GG 1 CAPSULE. PO SCH ×2 (08:52→21:59)
[2020-05-14] MEDS: AZITHROMYCIN 250 MG TABLET. PO SCH (08:52)
[2020-05-14] MEDS: DEXAMETHASONE SOD PHOS 4 MG/ML VIAL. IVP SCH (08:52)
[2020-05-14 10:11] VITALS: BP 137/64
--- NOTE | 2020-05-14 14:21 | PN ---
DATE: 05/14/2020 SUBJECTIVE: The patient is resting, slightly propped up in bed, in no apparent distress. She is definitely feeling much better, has occasional cough. Denied any chest pain or shortness of breath. Her appetite is great and her oxygen requirement is down to 8 liters, maintaining her oxygen saturation at 92%. PHYSICAL EXAMINATION: HEAD, EYES, EARS, NOSE, AND THROAT: Showed normocephalic, atraumatic. NECK: Supple. HEART: Normal first and second heart sounds. No gallop, rub or murmur. CHEST: Clear to auscultation. No crepitation or rhonchi anteriorly. There are few bilateral basal crepitations posteriorly. I could not appreciate any rhonchi. ABDOMEN: Scaphoid, soft, nontender. NEUROLOGIC: She is grossly intact. Her intake over the last 24 hours was 820, no output was recorded. LABORATORY DATA: She had no lab work done this morning. Her coronavirus by PCR is still pending at the time of this dictation. ASSESSMENT: 1. COVID-19 pneumonia, most likely with perhaps superimposed community-acquired pneumonia. 2. Acute hypoxic respiratory failure. 3. Bilateral lower extremity deep vein thrombosis. 4. Transaminitis with elevated AST, ALT, although the bilirubin and alkaline phosphatase are normal. PLAN: To continue with dexamethasone. Continue with ceftriaxone and Zithromax for presumed superimposed community-acquired pneumonia. She clinically behaves like she had coronavirus infection. She seemed to be going in the right direction. However, if her oxygen requirement dramatically increased, we will start remdesivir also. MAKAYLA OCHOA MD DR: RAMONA/andres JOB#: [id number] / [id number]
[2020-05-14 16:09] VITALS: BP 119/64
[2020-05-14 20:45] VITALS: BP 134/71
[2020-05-15 05:33] LABS: HEMATOCRIT 34.3 % (36.0-47.0); HEMOGLOBIN 11.2 g/dL (12.0-15.5); RED BLOOD COUNT 3.62 x10^6/uL (3.50-5.40); WHITE BLOOD COUNT 7.5 x10^3/uL (4.0-11.0)
[2020-05-15 05:40] VITALS: BP 140/71
[2020-05-15 05:49] LABS: ALBUMIN 2.4 g/dL (3.4-5.0); ALBUMIN/GLOBULIN RATIO 0.7 (1.0-1.7); CALCIUM 8.2 mg/dL (8.5-10.1); CREATININE 0.8 mg/dL (0.6-1.0); GFR 72.2; POTASSIUM 3.8 mmol/L (3.5-5.1); TOTAL BILIRUBIN 0.4 mg/dL (0.2-1.0)
[2020-05-15] MEDS: ENOXAPARIN ** NOTE DOSE ** SYRINGE SQ SCH ×2 (07:26→21:43)
[2020-05-15] MEDS: AZITHROMYCIN 250 MG TABLET. PO SCH (07:27)
[2020-05-15] MEDS: LACTOBACILLUS RHAMNOSUS GG 1 CAPSULE. PO SCH ×2 (07:27→21:43)
[2020-05-15] MEDS: DEXAMETHASONE SOD PHOS 4 MG/ML VIAL. IVP SCH (07:27)
[2020-05-15 11:18] VITALS: BP 136/75
--- NOTE | 2020-05-15 14:47 | PN ---
DATE: 05/15/2020 SUBJECTIVE: The patient is resting, slightly propped up in bed, in no apparent respiratory distress. She is awake, alert. She stated she is feeling generally better. She has actually managed to get out of the bed to chair. Her appetite is good and she said she slept well last night, has had no chest pain, no shortness of breath and no chills, rigors or fever. PHYSICAL EXAMINATION: GENERAL: When I examined her, she was pale, but no jaundice, cyanosis or thyromegaly. No jugular venous distension. No lower limb edema. VITAL SIGNS: Her heart rate was 77, blood pressure was 136/75, temperature was 98.2, respiratory rate was 18 and oxygen saturation was 95% on 8 liters of oxygen. HEAD, EYES, EARS, NOSE, AND THROAT: Showed normocephalic, atraumatic. NECK: Supple. HEART: Showed normal first and second heart sounds. No gallop, rub or murmur. CHEST: Clear to auscultation. No crepitation or rhonchi. ABDOMEN: Distended, soft, nontender. No guarding or rigidity. No organomegaly. All hernial orifice intact. Bowel sounds normal. NEUROLOGIC: She is definitely more awake, alert, responding appropriately. All cranial nerves intact. She moves extremities without difficulty. She managed to ambulate without assistance or assistive devices. Her intake over the last 24 hours was 1000. No output was recorded. LABORATORY DATA: Her lab work this morning showed her white cell count of 7500, hemoglobin 11, hematocrit 34, MCV 95, and platelet count of 177,000. Serum sodium was 147, potassium 3.8, chloride 110, bicarbonate 29, anion gap of 8, BUN 28, creatinine 0.8, estimated GFR was 72 mL per minute. Her glucose 127, calcium was 8.2. Total bilirubin, AST, alkaline phosphatase are normal. Her ALT is trending down. It was 213, yesterday was 168 and today was 108. Her total protein was 6, albumin was 2.4. ASSESSMENT: 1. COVID-19 pneumonia, most likely with perhaps superimposed community-acquired pneumonia. 2. Acute hypoxic respiratory failure. She is now on 8 liters of oxygen. 3. Bilateral lower extremity deep vein thrombosis. 4. Transaminitis with elevated AST, ALT that is resolving. Plan is to continue with dexamethasone. Continue with ceftriaxone and Zithromax for presumed superimposed community-acquired pneumonia. She clinically behaves as if she has coronavirus infection. I will basically continue also with Lovenox 1 mg/kg subcutaneously twice a day for deep vein thrombosis and add inhaler and perhaps also remdesivir. MAKAYLA OCHOA MD DR: RAMONA/andres JOB#: [id number] / [id number]
[2020-05-15] MEDS ORDERED: REMDESIVIR LOAD in IV NORMAL SALINE 250ML TV IV ONE (16:00)
[2020-05-15] MEDS: IPRATROPIUM/ALBUTEROL 20/100mcg/INH INHALER. INH SCH ×2 (16:00→20:00)
[2020-05-15 20:44] VITALS: BP 127/76
[2020-05-16 05:38] VITALS: BP 135/72
[2020-05-16] MEDS: IPRATROPIUM/ALBUTEROL 20/100mcg/INH INHALER. INH SCH ×4 (08:00→20:00)
[2020-05-16 15:04] VITALS: BP 143/71
[2020-05-16] MEDS: REMDESIVIR 100mg in NORMAL SALINE 250ML X 4 DAYS IV SCH (16:44)
--- NOTE | 2020-05-16 17:38 | PN ---
DATE: 05/16/2020 SUBJECTIVE: The patient is resting, slightly propped up in bed, in no apparent distress. She is awake and alert, stated that she is generally feeling much improved. She is now on 6 liters of oxygen by nasal cannula, maintaining her oxygen saturation at 93%. PHYSICAL EXAMINATION: GENERAL: When I examined her, she looked pale, but no jaundice, cyanosis, or thyromegaly. No jugular venous distention. No lower limb edema. VITAL SIGNS: Her heart rate was 77, blood pressure was 143/71, temperature was 97.5, respiratory rate was 20, and oxygen saturation was 93% on 6 liters of oxygen. HEAD, EYES, EARS, NOSE, AND THROAT: Showed she is normocephalic, atraumatic. NECK: Supple. HEART: Showed normal first and second heart sounds. No gallop, rub, or murmur. CHEST: Clear to auscultation. No crepitation or rhonchi. ABDOMEN: Distended. NEUROLOGIC: She is grossly intact. Her intake and output were incompletely recorded. LABORATORY DATA: Most recent white cell count was 7500, hemoglobin 11, hematocrit 34, MCV 95, and platelet count of 177,000. Her chemistry showed a serum sodium of 147, potassium 3.8, chloride 110, bicarbonate 29, anion gap of 8, BUN 28, creatinine 0.8, estimated GFR was 72 mL per minute. Her glucose 127, calcium was 8.2. Total bilirubin, AST, and alkaline phosphatase are normal. ALT is slightly elevated. Total protein was 6, albumin was 2.4. Her D-dimer was high at more than 19 mg. Urinalysis was essentially unremarkable and her coronavirus by PCR was detectable. ASSESSMENT: 1. COVID-19 pneumonia, as her coronavirus by PCR came back detectable. 2. Possible superimposed community-acquired pneumonia. 3. Acute hypoxic respiratory failure. She is now on 6 liters of oxygen. 4. She has bilateral lower extremity deep vein thrombosis. 5. Transaminitis with elevated AST and ALT that are resolving. PLAN: To continue with dexamethasone. Continue with ceftriaxone and Zithromax for a presumed community-acquired pneumonia. I did start her also on Lovenox 1 mg/kg subcutaneously twice a day for deep vein thrombosis together with inhalers and remdesivir. We will continue with this treatment; and once her oxygen requirement is tolerable and can be delivered at home, she can be discharged. She obviously needs to be switched to Eliquis 10 mg twice a day for 7 days and then 5 mg twice a day thereafter. MAKAYLA OCHOA MD DR: RAMONA/andres JOB#: [id number] / [id number]
[2020-05-16 19:43] VITALS: BP 120/57
[2020-05-16] MEDS: LACTOBACILLUS RHAMNOSUS GG 1 CAPSULE. PO SCH (20:31)
[2020-05-16] MEDS: ENOXAPARIN ** NOTE DOSE ** SYRINGE SQ SCH (20:31)
[2020-05-16 22:40] VITALS: BP 128/67
[2020-05-17 05:59] VITALS: BP 137/69
[2020-05-17] MEDS: IPRATROPIUM/ALBUTEROL 20/100mcg/INH INHALER. INH SCH ×4 (08:41→20:49)
[2020-05-17] MEDS: ENOXAPARIN ** NOTE DOSE ** SYRINGE SQ SCH ×2 (08:42→08:44)
[2020-05-17] MEDS: AZITHROMYCIN 250 MG TABLET. PO SCH ×2 (08:43→08:44)
[2020-05-17] MEDS: LACTOBACILLUS RHAMNOSUS GG 1 CAPSULE. PO SCH ×3 (08:43→20:48)
[2020-05-17] MEDS: DEXAMETHASONE SOD PHOS 4 MG/ML VIAL. IVP SCH ×2 (08:43→08:44)
[2020-05-17 10:51] VITALS: BP 123/69
--- NOTE | 2020-05-17 12:38 | PN ---
DATE: 05/17/2020 ATTENDING PHYSICIAN: Dr. Wilson and Dr. Gómez. SUBJECTIVE: She is feeling better, vertiginous symptoms have resolved. She is still having marginal saturations on room air. Exertional saturations are diminished. She is maintaining room air sats between 89 and 91% on 2 liters. She is up at 93% saturation. OBJECTIVE FINDINGS: VITAL SIGNS: She is afebrile. Blood pressure is 137/69, pulse 60 and regular, oxygen saturation as noted. HEENT: Head is without trauma. Pupils are reactive. Sclerae nonicteric. Oropharynx is clear. NECK: Supple, no bruits identified. LUNGS: Good breath sounds. No wheezing. CARDIOVASCULAR: Showed regular heart tones. No gallops. ABDOMEN: Soft. EXTREMITIES: Without edema. NEUROLOGIC: Focally intact. Speech is fluent. ASSESSMENT: 1. Acute respiratory failure due to COVID-19 pneumonia. 2. Bilateral lower leg deep venous thrombosis. 3. Transaminitis. 4. Still requiring supplemental oxygen. PLAN: 1. Continue remdesivir. 2. Diminished oxygen demands. 3. Followup visit as an outpatient. 4. Tentative discharge plan soon. LEONARD GÓMEZ MD DR: TAHMINA/andres JOB#: [id number] / [id number]
[2020-05-17 14:48] VITALS: BP 119/70
[2020-05-17] MEDS: REMDESIVIR 100mg in NORMAL SALINE 250ML X 4 DAYS IV SCH (16:18)
[2020-05-17 20:06] VITALS: BP 122/69
[2020-05-17] MEDS: APIXABAN 5 MG TABLET. PO SCH (20:48)
--- NOTE | 2020-05-17 21:56 | PN ---
DATE: 05/14/2020 SUBJECTIVE: The patient denies any new medical or neurological complaints. She stated her dizziness has improved on bedrest, hydration and meclizine. She continues to have mild shortness of breath on exertion. Otherwise, she is walking without significant dizziness. OBJECTIVE: GENERAL: Well-developed, well-nourished female, not in acute distress. VITAL SIGNS: Blood pressure is 137/64, respiratory rate 20, pulse is 66 and regular, temperature 96.1, oxygen saturation 92% on 8 liters by nasal cannula. HEENT: Normocephalic, atraumatic, otherwise unremarkable. NECK: Supple. Negative for carotid bruit, lymphadenopathy or thyromegaly. LUNGS: Clear to A and P. CARDIOVASCULAR: Regular rate and rhythm, normal S1, S2. ABDOMEN: Soft. Bowel sounds positive. EXTREMITIES: Negative for cyanosis, clubbing or edema. NEUROLOGICAL EXAM: Normal mental status and intact cranial nerves. There is no nystagmus. There is no facial motor or sensory deficit. Deep tendon reflexes were symmetric and hypoactive with absent Achilles responses. Gait: The patient is more steady and she is able to walk a few steps in the room with assistance. IMPRESSION: 1. Vertigo presented with spinning. 2. Pneumonia and suspect COVID-19 infection. 3. Bilateral lower extremities deep venous thrombosis. 4. Elevated liver enzymes of unknown etiology. RECOMMENDATIONS: 1. Continue with current management initiated by Dr. Wilson for pneumonia and dexamethasone. 2. We will continue with meclizine, bedrest and hydration with physical therapy as tolerated. 3. Continue with Lovenox. The patient is neurologically stable. M Rock ROMANO MD DR: LUZ/andres JOB#: [id number] / [id number]
--- NOTE | 2020-05-17 22:04 | PN ---
DATE: 05/13/2020 SUBJECTIVE: The patient denies any neurological complaints; however, she continues to have mild dizziness described as spinning, mainly when she changed her body positions or turning her head to any directions. She denies headaches, visual disturbances, nausea, vomiting palpitation or chest pain, but she continues to have shortness of breath when she walks. OBJECTIVE: GENERAL: A well-developed, well-nourished female, not in acute distress. VITAL SIGNS: Blood pressure is 114/57, respiratory rate 16, pulse is 73, temperature 97.5, oxygen saturation 92% on 2 liters by nasal cannula. HEENT: Normocephalic, atraumatic, otherwise unremarkable. NECK: Supple. Negative for carotid bruit, lymphadenopathy or thyromegaly. LUNGS: Clear to A and P. CARDIOVASCULAR: Regular rate and rhythm, normal S1, S2. There is no S3, S4 or murmurs. ABDOMEN: Soft. Bowel sounds positive. EXTREMITIES: Negative for cyanosis, clubbing or edema. NEUROLOGICAL EXAM: Normal mental status and intact cranial nerves. There is no nystagmus. Hearing is intact bilaterally, otherwise, unremarkable. There is no focal, motor or sensory deficit. Deep tendon reflexes were asymmetric and hypoactive without pathology responses. Gait not tested. LABORATORY DATA: CBC revealed white blood cells of 6.4 thousand, hemoglobin 11.3, hematocrit 33.9, platelet count 189,000. The Venous Doppler study of the lower extremities revealed nonconclusive thrombosis within the right popliteal vein and one of the posterior tibial and peroneal veins. IMPRESSION: 1. Vertigo, presented with spinning induced by changing her body positions or turning her head to any direction quickly -- improved. 2. Oxygen desaturation. She is on oxygen supplements. 3. Elevated liver enzymes of unknown etiology. 4. Suspected of COVID-19 infection. 5. Nonocclusive deep venous thrombosis in the bilateral lower extremities. 6. Pneumonia. 7. Possible COVID 19 infection. RECOMMENDATIONS: 1. Continue with current management initiated by Dr. Wilson. 2. Await for COVID-19 result. 3. Continue with current management for vertigo including meclizine and bed rest and hydration. 4. We will start the patient on Lovenox at 1 mg/k twice daily subcutaneously and continue with other medical management initiated by Dr. Wilson. M Rock ROMANO MD DR: LUZ/andres JOB#: [id number] / [id number]
--- NOTE | 2020-05-17 22:07 | PN ---
DATE: 05/15/2020 SUBJECTIVE: The patient denies any new neurological complaints. Her dizziness has improved over the last few days and she denies nausea or vomiting, but she continued to have shortness of breath on exertion. She denies any other medical complaints. OBJECTIVE: GENERAL: Well-developed, well-nourished female, not in acute distress. VITAL SIGNS: Blood pressure 140/71, respiratory rate 18, pulse is 59, oxygen saturation is 95% on 8 liters per nasal cannula and temperature 97.5. HEENT: Normocephalic, atraumatic, otherwise unremarkable. NECK: Supple. Negative for carotid bruit, lymphadenopathy or thyromegaly. LUNGS: Clear to A and P. CARDIOVASCULAR: Regular rate and rhythm, normal S1, S2. ABDOMEN: Soft. Bowel sounds positive. EXTREMITIES: Negative for cyanosis, clubbing or edema. NEUROLOGICAL EXAM: Normal mental status and intact cranial nerves. There is no focal motor or sensory deficit. Deep tendon reflexes were symmetric and hypoactive without pathologic responses. Gait: The patient is able to stand up and make a few steps without complications. LABORATORY DATA: CBC revealed white blood cells of 7.5 thousand, hemoglobin 11.2, hematocrit 34.3, platelet count 177,000. Chemistry revealed sodium of 147, potassium 3.8, chloride 110, CO2 of 29, BUN 28, creatinine 0.8, glucose is 127, calcium 8.2. Liver enzymes elevated. ALT is normal. PCR of coronavirus came back positive. IMPRESSION: 1. Vertigo, described as spinning, likely represent acute vestibulopathy versus positional vertigo. 2. COVID-19 pneumonia. 3. Non-conclusive bilateral lower extremity deep venous thrombosis. 4. Elevated liver enzymes, mainly AST. RECOMMENDATIONS: Continue with current management initiated by Dr. Wilson for coronavirus pneumonia including broad-spectrum antibiotics, dexamethasone, remdesivir. M Rock ROMANO MD DR: LUZ/andres JOB#: [id number] / [id number]
[2020-05-17 22:25] VITALS: BP 128/70
--- NOTE | 2020-05-17 22:59 | PN ---
DATE: 05/16/2020 SUBJECTIVE: The patient denies any new neurological complaints. She stated her vertigo has significantly improved and she has been feeling much better and trying to walk slowly. She has been walking with physical therapy throughout the day. Her oxygen saturation has been 93%. OBJECTIVE: GENERAL: Well-developed, well-nourished female, not in acute distress. VITAL SIGNS: Blood pressure is 135/72, respiratory rate 18, pulse is 63 and regular, temperature 97.2, oxygen saturation is 95% on 8 liters via nasal cannula. HEENT: Normocephalic, atraumatic, otherwise unremarkable. NECK: Supple. Negative for carotid bruit, lymphadenopathy or thyromegaly. LUNGS: Clear to A and P. CARDIOVASCULAR: Regular rate and rhythm, normal S1, S2. ABDOMEN: Soft. Bowel sounds positive. EXTREMITIES: Negative for cyanosis, clubbing or edema. NEUROLOGICAL EXAM: Mental Status: Normal mental status and intact cranial nerves. There is no focal motor or sensory deficit. Deep tendon reflexes were asymmetric and hypoactive with absent Achilles responses. Gait: The stance is more steady. IMPRESSION: 1. Acute vertigo -- resolved, probably due to vestibulopathy versus benign positional vertigo. 2. Nonconclusive bilateral deep venous thrombosis. 3. COVID-19 pneumonia. 4. Elevated liver enzymes -- resolved. RECOMMENDATIONS: We will continue with current management initiated by Dr. Wilson. The patient has been on broad-spectrum antibiotics and remdesivir for coronavirus infection along with Lovenox. Other alternative for Lovenox will be Eliquis for deep venous thrombosis. M Rock ROMANO MD DR: LUZ/andres JOB#: [id number] / [id number]
--- NOTE | 2020-05-17 23:07 | PN ---
DATE: SUBJECTIVE: The patient was seen today in followup visit. She denies any vertigo. She has been more active and walk by herself. She eats and drinks well. She denies headaches, visual disturbances or any new neurological complaints. OBJECTIVE: GENERAL: Well-developed, well-nourished female, not in acute distress. VITAL SIGNS: Blood pressure 123/69, respiratory rate 20, pulse is 83 and regular, temperature 98.4, oxygen saturation 96% on 3 liters by nasal cannula. HEENT: Normocephalic, atraumatic, otherwise unremarkable. NECK: Supple. Negative for carotid bruit, lymphadenopathy or thyromegaly. LUNGS: Clear to A and P. CARDIOVASCULAR: Regular rate and rhythm, normal S1, S2. ABDOMEN: Soft. Bowel sounds positive. EXTREMITIES: Negative for cyanosis, clubbing or edema. NEUROLOGIC EXAM: Normal mental status and intact cranial nerves. No focal motor or sensory deficit. Deep tendon reflexes were symmetric and hypoactive. Gait: The stance is more steady. IMPRESSION: 1. Acute vertigo -- resolved. 2. COVID-19 pneumonia. 3. Bilateral lower extremity non-conclusive venous thrombosis. RECOMMENDATIONS: We will continue with current management initiated by Dr. Wilson and Dr. Chavez for coronavirus pneumonia. The patient is neurologically stable. M Rock ROMANO MD DR: LUZ/andres JOB#: [id number] / [id number]
[2020-05-18 05:50] VITALS: BP 143/78
[2020-05-18 06:13] LABS: HEMATOCRIT 34.1 % (36.0-47.0); HEMOGLOBIN 11.3 g/dL (12.0-15.5); RED BLOOD COUNT 3.64 x10^6/uL (3.50-5.40); WHITE BLOOD COUNT 9.6 x10^3/uL (4.0-11.0)
[2020-05-18] MEDS: DEXAMETHASONE SOD PHOS 4 MG/ML VIAL. IVP SCH (07:42)
[2020-05-18] MEDS: IPRATROPIUM/ALBUTEROL 20/100mcg/INH INHALER. INH SCH ×4 (07:42→21:00)
[2020-05-18] MEDS: APIXABAN 5 MG TABLET. PO SCH ×2 (07:42→20:59)
[2020-05-18] MEDS: LACTOBACILLUS RHAMNOSUS GG 1 CAPSULE. PO SCH ×2 (07:42→20:59)
[2020-05-18] MEDS: AZITHROMYCIN 250 MG TABLET. PO SCH (07:42)
--- NOTE | 2020-05-18 10:08 | PN ---
DATE: SUBJECTIVE: The patient denies any new medical or neurological complaints. She is more active and she walked using a walker. She denies dizziness, nausea, vomiting, headaches, chest pain, but she still has mild shortness of breath on exertion. OBJECTIVE: GENERAL: A well-developed, well-nourished female, not in any acute distress. VITAL SIGNS: Afebrile, temperature 97.9, oxygen saturation is 93% on room air, pulse is 57, respiratory rate 20s, and blood pressure 143/78. HEENT: Normocephalic, atraumatic, otherwise unremarkable. NECK: Supple. Negative for carotid bruit, lymphadenopathy or thyromegaly. LUNGS: Clear to A and P. CARDIOVASCULAR: Regular rate and rhythm, normal S1, S2. ABDOMEN: Soft. Bowel sounds positive. EXTREMITIES: Negative for cyanosis, clubbing or edema. NEUROLOGICAL EXAM: Normal mental status and intact cranial nerves. There is no focal motor or sensory deficit. Deep tendon reflexes were symmetric and hypoactive. Steady stance. The patient uses a walker for ambulation. LABORATORY DATA: CBC revealed white blood cells of 9.6 thousand, hemoglobin 11.3, hematocrit 34.1, and platelet count 177,000. IMPRESSION: 1. Acute vertigo -- resolved. 2. COVID-19 pneumonia. 3. Renal insufficiency versus dehydration. 4. Nonconclusive bilateral lower extremities DVT. RECOMMENDATIONS: Continue with current management initiated by Dr. Chavez. The patient is neurologically stable. M Rock ROMANO MD DR: LUZ/andres JOB#: [id number] / [id number]
[2020-05-18 10:51] VITALS: BP 119/63
--- NOTE | 2020-05-18 11:07 | PN ---
DATE: 05/18/2020 ATTENDING PHYSICIANS: Dr. Wilson and Dr. Gómez. SUBJECTIVE: Feeling better. She has adequate saturation of 93% on room air. Dizziness has resolved. She is breathing well with no new complaints. OBJECTIVE FINDINGS: VITAL SIGNS: Blood pressure today is 143/78, pulse 60 and regular. She was afebrile, oxygen saturation 93% on room air. HEENT: Head is without trauma. Pupils are reactive. Sclerae nonicteric. NECK: No nystagmus. LUNGS: Clear with good breath sounds. CARDIOVASCULAR: Showed regular heart tones. No gallops. ABDOMEN: Soft. EXTREMITIES: Without edema. There is no swelling. SKIN: Warm and dry. NEUROLOGIC: Intact. Speech is fluent. No further ataxia or dizziness. ASSESSMENT: 1. A 64-year-old female with respiratory failure due to COVID-19 pneumonia, improved, now stable saturations on room air. 2. Bilateral lower leg deep vein thrombosis. 3. Vertigo symptoms resolved. PLAN: 1. Finish remdesivir. 2. Tentative discharge plans for tomorrow. 3. Eliquis for DVT. LEONARD GÓMEZ MD DR: TAHMINA/andres JOB#: [id number] / [id number]
[2020-05-18 14:39] VITALS: BP 110/61
[2020-05-18] MEDS: REMDESIVIR 100mg in NORMAL SALINE 250ML X 4 DAYS IV SCH (15:58)
[2020-05-18 19:54] VITALS: BP 137/72
[2020-05-18 22:48] VITALS: BP 125/74
[2020-05-19 05:43] VITALS: BP 122/66
[2020-05-19] MEDS: DEXAMETHASONE SOD PHOS 4 MG/ML VIAL. IVP SCH (07:27)
[2020-05-19] MEDS: LACTOBACILLUS RHAMNOSUS GG 1 CAPSULE. PO SCH (07:27)
[2020-05-19] MEDS: IPRATROPIUM/ALBUTEROL 20/100mcg/INH INHALER. INH SCH (07:27)
[2020-05-19] MEDS: APIXABAN 5 MG TABLET. PO SCH (07:27)
[2020-05-19] MEDS: AZITHROMYCIN 250 MG TABLET. PO SCH (07:28)
[2020-05-19 08:14] LABS: ALBUMIN 2.9 g/dL (3.4-5.0); ALBUMIN/GLOBULIN RATIO 0.9 (1.0-1.7); CALCIUM 8.6 mg/dL (8.5-10.1); CREATININE 0.7 mg/dL (0.6-1.0); GFR 84.2; POTASSIUM 4.5 mmol/L (3.5-5.1); TOTAL BILIRUBIN 0.4 mg/dL (0.2-1.0); TOTAL PROTEIN 6.1 g/dL (6.4-8.2)
[2020-05-19] MEDS ORDERED: REMDESIVIR 100mg in NORMAL SALINE 250ML X 4 DAYS IV SCH (09:00)
--- NOTE | 2020-05-19 12:22 | DS ---
DATE OF DISCHARGE: 05/19/2020 ATTENDING PHYSICIAN: Dr. Wilson. FINAL DISCHARGE DIAGNOSES: 1. COVID-19 pneumonia. 2. Vertigo, acute, resolved. 3. Incidental finding of deep vein thrombosis, left leg. 4. Hypoxemic respiratory failure, resolved. HISTORY AND PHYSICAL: This is a 64-year-old female with known COVID pneumonia. She was readmitted with increasing shortness of breath, dizziness, and vertigo symptoms. OBJECTIVE FINDINGS: Please see the dictated note. PERTINENT LABORATORY AND X-RAY STUDIES: Prior to discharge, her electrolytes are stable with a sodium 142 mEq, potassium 4.5. Electrolytes, creatinine 0.7, hemoglobin 11.3 g/dL with white count of 9600. IMAGING STUDIES: CT angiogram showed no blood clots. Patchy areas of consolidation in the periphery of the lungs bilaterally consistent with atypical pneumonia. Doppler studies also showed evidence of DVT in the superficial veins of the left leg. COURSE IN THE HOSPITAL: She was admitted. She was treated with remdesivir, regular IV antibiotics, and steroids with marked improvement. Dizziness resolved with vertigo and time. Neurologic consultation is much appreciated. She did well. At this time, she was switched to oral Eliquis. I recommended 6 months of therapy. She was discharged then with scripts for Eliquis 5 mg b.i.d., meclizine 25 mg p.o. t.i.d. as needed and to follow up with her new PCP. No further antibiotics or Decadron needed. She was doing better. Oxygen saturation 93% on room air. On the 8th hospital day, the patient was discharged home in stable condition with explicit instructions and followup care. TOTAL DISCHARGE TIME SPENT: 41 minutes. LEONARD GÓMEZ MD DR: TAHMINA/andres JOB#: [id number] / [id number]
== END 2020-05-19 12:30 | disposition home or self-care (01) | DRG 177 ==
LOC: ER 09:59 → 1 SOUTH 14:20
PROVIDERS: ADMIT Internal Medicine; ATTEND Internal Medicine
PROC: XW033E5 Introduction of Remdesivir Anti-infective into Peripheral Vein, Percutaneous Approach, New Technology Group 5 (ICD-10-PCS; principal; 2020-05-11)
PROC: 5A0935A Assistance with Respiratory Ventilation, Less than 24 Consecutive Hours, High Flow/Velocity Cannula (ICD-10-PCS; 2020-05-13)
PROC: 5A0935A Assistance with Respiratory Ventilation, Less than 24 Consecutive Hours, High Flow/Velocity Cannula (ICD-10-PCS; 2020-05-16)
PROC: 5A0935A Assistance with Respiratory Ventilation, Less than 24 Consecutive Hours, High Flow/Velocity Cannula (ICD-10-PCS; 2020-05-17)
DX: U07.1 COVID-19 (principal); J12.82 Pneumonia due to coronavirus disease 2019; J96.01 Acute respiratory failure with hypoxia; E43 Unspecified severe protein-calorie malnutrition; I82.403 Acute embolism and thrombosis of unspecified deep veins of lower extremity, bilateral; E86.0 Dehydration; H81.20 Vestibular neuronitis, unspecified ear; R29.6 Repeated falls; S09.90XA Unspecified injury of head, initial encounter; W19.XXXA Unspecified fall, initial encounter; Z79.01 Long term (current) use of anticoagulants; Z80.3 Family history of malignant neoplasm of breast; Z68.26 Body mass index [BMI] 26.0-26.9, adult
CPT/HCPCS: 36415; 70450; 70496; 70498; 71275; 72125; 73140; 80053; 81001; 82803; 83690; 84484; 85025; 85027; 85379; 93005; 93970; 94660; 96361; 96374; J0456; J0696; J1100; J1650; J2405; J2765; J7050; Q9967; U0003; 97110; 97116; 97530; 97535; 99285-25; J7030